=== PATIENT | female | born 1945 | race Caucasian/White ===

== ENCOUNTER 2022-07-23 07:32 | Emergency (ER) | payer MEDICARE ==
[~2022-07-23] VITALS: Ht 172.7 cm; Wt 77.1 kg
[2022-07-23] MEDS ORDERED: PREDNISONE20 M1 PO (09:42)
== END 2022-07-23 09:48 | disposition home or self-care (01) ==
LOC: ED 07:32
DX: J45.909 Unspecified asthma, uncomplicated (principal); Z88.8 Allergy status to other drugs, medicaments and biological substances